=== PATIENT | female | born 1980 | race Caucasian/White ===

== ENCOUNTER → 2016-12-19 | Outpatient (CLI) | payer BC ==
[~2016-12-19] MED LIST: ALBUAER19 INH; CETI10TA10 PO; IPRA1AER2 INH; IPRASOL4 INH; [UNRECOGNIZED DRUG - CODE] PO
== END | disposition home or self-care (01) ==
LOC: C.PAPS 14:15
PROVIDERS: ATTEND Physician Assistant
DX: Z01.419 Encounter for gynecological examination (general) (routine) without abnormal findings (principal)

== ENCOUNTER 2022-09-12 21:35 | Observation (INO) ==
[2022-09-12] MEDS ORDERED: ONDANSETRON INJ 2 MG/ML 2 ML VIAL ONE (21:46)
[2022-09-12] MEDS ORDERED: ONDANSETRON INJ 2 MG/ML 2 ML VIAL IV STA (21:46)
[2022-09-12] MEDS ORDERED: SODIUM CHLORIDE 0.9% 500 ML IV STA (21:48)
[2022-09-12 22:08] LABS: Basophils # (auto) 0.05 K/uL (0-0.2); Basophils % (auto) 0.3 %; Eosinophils # (auto) 0.16 K/uL (0-0.50); Eosinophils % (auto) 0.8 %; Hematocrit (blood only) 42.2 % (37.0-47.0); Hemoglobin 14.7 g/dl (12.0-16.0); Immature Granulocytes % (auto) 0.5 %; Lymphocytes # (auto) 2.92 K/uL (1.2-3.4); Lymphocytes % (auto) 14.7 %; Mean Corpuscular Hemoglobin 32.4 pg (25.0-34.0); Mean Corpuscular Hgb Conc 34.8 g/dL (32.0-36.0); Mean Platelet Volume 9.6 fL (9.4-12.4); Monocytes # (auto) 1.58 K/uL (0.11-0.59); Monocytes % (auto) 7.9 %; Neutrophils # (auto) 15.11 K/uL (1.40-6.50); Neutrophils % (auto) 75.8 %; Platelet Count 219 K/uL (130-400); RDW Coefficient of Variation 12.4 % (11.5-14.5); RDW Standard Deviation 42.5 fL (36.4-46.3); Red Blood Count 4.54 M/uL (4.20-5.40); White Blood Count 19.92 K/ul (4.8-10.8)
[2022-09-12 22:24] LABS: Albumin Globulin Ratio 1.4 (0.9-2); Albumin Level 3.9 gm/dl (3.4-5.0); BUN Creatinine Ratio 13.3 (10-20); Bilirubin,Total 0.5 mg/dl (0.2-1.0); Calcium 9.3 mg/dl (8.6-10.3); Est GFR (African American) 90.1 ml/min; Est GFR (Non-African American) 77.8 ml/min; Globulin 2.8 gm/dl (2.5-4.0); Potassium 3.9 mmol/L (3.5-5.1); Total Protein 6.7 gm/dl (6.0-8.3)
[2022-09-12 22:30] LABS: Troponin I High Sensitivity 5.1 pg/ml (0-14)
[2022-09-12 22:43] LABS: Partial Thromboplastin Time 27.1 Seconds (21.0-31.0); Prothrombin Time 11.3 Seconds (9.0-12.0)
[2022-09-12 22:53] LABS: Adenovirus PCR Not Detected (NotDetected); Bordetella parapertussis PCR Not Detected (NotDetected); Bordetella pertussis PCR Not Detected (NotDetected); Chlamydia pneumoniae PCR Not Detected (NotDetected); Coronavirus 229E PCR Not Detected (NotDetected); Coronavirus CoV-2 (COVID19)PCR Not Detected (NotDetected); Coronavirus HKU1 PCR Not Detected (NotDetected); Coronavirus NL63 PCR Not Detected (NotDetected); Coronavirus OC43PCR Not Detected (NotDetected); Human Metapneumovirus PCR Not Detected (NotDetected); Influenza A PCR Not Detected (NotDetected); Influenza B PCR Not Detected (NotDetected); Mycoplasma pneumoniae PCR Not Detected (NotDetected); Parainfluenza Virus 1 PCR Not Detected (NotDetected); Parainfluenza Virus 2 PCR Not Detected (NotDetected); Parainfluenza Virus 3 PCR Not Detected (NotDetected); Parainfluenza Virus 4 PCR Not Detected (NotDetected); Respiratory Syncytial VirusPCR Not Detected (NotDetected)
[2022-09-12 22:56] LABS: Rhinovirus/Enterovirus PCR DETECTED (NotDetected)
[2022-09-12] MEDS ORDERED: ALBUT/IPRATROP 3MG/0.5MG NEB 3 ML VIAL NEB STA (22:57)
[2022-09-12] MEDS ORDERED: SODIUM CHLORIDE 0.9% 1000ML 1,000 ML IV ONE (22:57)
--- NOTE | 2022-09-12 23:03 | Emergency Department Note ---
History of Present Illness General Chief complaint: Shortness of Breath/Dyspnea Stated complaint: HARD TIME BREATHING,COLD,CONGESTED, Time Seen by Provider: 09/12/22 22:49 History of Present Illness Maximum Pain Intensity: 6 42-year-old female presents emergency department she has a history of hyper eosinophilic syndrome, states that she is on Humira for rheumatoid arthritis and she is also on a tapering dose of steroids and she is now on 10 mg daily. Patient states past 5 days she has had cough cold congestion and states that she felt like she had a cold. Patient states today she spiked a fever. Patient was concerned as she was having some difficulty breathing. Patient denies any hemoptysis denies any green or yellow mucus. Patient denies calf pain. Patient denies pleuritic chest pain. Patient denies nausea vomiting diarrhea. There are no other mitigating or alleviating factors Home Medications Medication Instructions Recorded Confirmed Type cetirizine 10 mg tablet 10 mg PO HS 01/22/19 08/24/22 History ipratropium 0.5 mg-albuterol 3 mg 3 ml inhalation Q6H PRN sob #2 mL 01/22/19 08/24/22 History (2.5 mg base)/3 mL nebulization soln levothyroxine 50 mcg tablet 50 mcg PO QAM 02/13/19 08/24/22 History multivitamin 1 tab PO QPM 05/23/19 08/24/22 History aspirin 325 mg tablet,delayed 325 mg PO BID 06/23/20 08/24/22 History release methotrexate (PF) subcut 12/30/21 08/24/22 History prednisone PO 12/30/21 08/24/22 History desogestrel-e.estradiol 0.15 1 tab PO QPM #84 tabs 04/05/22 08/24/22 Rx mg-0.02 mg(21)/e.estrad 0.01 mg(5) tablet adalimumab 40 mg/0.8 mL 40 mg subcut Q14D 05/01/22 08/24/22 History subcutaneous pen kit (Humira Pen) mometasone-formoterol HFA 200 2 puff inhalation BID #1 inhaler 07/17/22 08/24/22 Rx mcg-5 mcg/actuation aerosol inhaler (Dulera) mepolizumab 100 mg/mL subcutaneous 300 mg (3 mL) subcut .COMPLEX #3 mL 08/23/22 08/24/22 Rx syringe (Nucala) albuterol sulfate 90 mcg/actuation 2 puff inhalation Q4H PRN 09/01/22 Rx aerosol inhaler (ProAir HFA) shortness of breath or wheezing #1 inhaler prednisone 10 mg tablet See Rx Instructions PO DAILY #30 09/01/22 Rx tabs Allergies Allergy/AdvReac Type Severity Reaction Status Date / Time Sulfa (Sulfonamide Allergy Intermediate Rash Verified 08/24/22 11:08 Antibiotics) Penicillins Allergy Unknown Unknown Verified 08/24/22 11:08 Past Med/Surg History Medical History (Updated 09/13/22 @ 01:29 by Jg Alvarado MD) Asthma rare use of PRN inh Hypothyroidism Migraine hx Severe persistent asthma Surgical History H/O wisdom tooth extraction History of esophagogastroduodenoscopy (EGD) History of nasal septoplasty with bilateral turbinate outfracture and turbinoplasty 06/11/19-Dr. Herrera History of sinus surgery 06/11/19-Dr. Herrera Family History Father Seasonal allergies FHx: skin cancer Mother Infestation with Ancylostoma ceylanicum Sinusitis PONV (postoperative nausea and vomiting) Grandmother (Maternal) FHx: lung cancer Grandmother (Paternal) FHx: breast cancer Breast cancer Sister Seizures Grandfather (Maternal) Myocardial infarction Other Heart disease No family history of bleeding disorder Denies family history of Ovarian cancer Prostate cancer Colorectal cancer Social History Smoking Status: Never smoker Second Hand Exposure: No; Do You Dip or Chew Tobacco: No; Hx Alcohol Use: Yes Alcohol type: beer, wine and hard liquor Alcohol type Comment: 3-6 Hx Substance Use: No Preferred Language: Namibian Communication Ability: Effective Citrus Peeler Required: No Beliefs That Will Affect Care: None Current Living Situation: Family and Significant Other current occupational status: employed current occupation: Professor Feels Safe at Home: Yes Assistive Devices: None Review of Systems A total of 10 systems reviewed and were otherwise negative Constitutional: + fever and + body aches Respiratory: + cough and + dyspnea Physical Exam Vital Signs Vital Signs - 24 hr 09/12/22 21:39 09/13/22 00:16 09/13/22 00:10 Temperature 37.4 C 37.9 C H Temperature Source Oral Oral Pulse Rate 125 H 108 H Pulse Rate [Finger] 108 H Pulse Rate from SpO2 Sensor 108 H Pulse Rhythm Regular Pulse Strength Normal Respiratory Rate 26 H 24 24 Respiratory Effort / Characteristics Spontaneous Labored Non-Labored Respiratory Depth Normal Normal Respiratory Pattern Regular Regular Blood Pressure Blood Pressure [Right Arm] 106/64 Blood Pressure Mean Blood Pressure Mean [Right Arm] 78 Blood Pressure Position Sitting Pulse Oximetry 97 96 91 Oxygen Delivery Method Room Air Room Air Sepsis Recent Fever Within 48 Hours Yes Sepsis New/Unexplained Change in Mental Status N/A Sepsis Action Taken by Nursing No Action Required 09/13/22 00:30 09/13/22 01:00 Temperature Temperature Source Pulse Rate 109 H 108 H Pulse Rate [Finger] Pulse Rate from SpO2 Sensor 108 H 108 H Pulse Rhythm Pulse Strength Respiratory Rate 12 26 H Respiratory Effort / Characteristics Respiratory Depth Respiratory Pattern Blood Pressure 97/60 L 90/66 L Blood Pressure [Right Arm] Blood Pressure Mean 72 74 Blood Pressure Mean [Right Arm] Blood Pressure Position Pulse Oximetry 94 96 Oxygen Delivery Method Sepsis Recent Fever Within 48 Hours Sepsis New/Unexplained Change in Mental Status Sepsis Action Taken by Nursing GENERAL: Patient is awake alert in no acute distress patient is resting comfortably and showing no signs of anxiety EYES: The conjunctivae are clear. The pupils are round and reactive. EARS, NOSE, MOUTH AND THROAT: The nose is without any evidence of any deformity. Mucous membranes are moist. Tongue is midline. NECK: The neck is nontender and supple. RESPIRATORY: Normal respiratory effort is noted there is no evidence of wheezing rhonchi or rales CARDIOVASCULAR: Tachycardic, regular noted there no murmurs rubs or gallops normal S1 normal S2. GASTROINTESTINAL: The abdomen is soft. Abdomen is nontender. BACK: No midline tenderness or or step-off noted range of motion in flexion extension as well as rotation no signs of muscle spasm noted MUSCULOSKELETAL/EXTREMITIES: There is no evidence of gross deformity full range of motion is noted in the hips and shoulders. Calves are nontender SKIN: There is no obvious evidence of any rash. There are no petechiae, pallor or cyanosis noted. NEUROLOGIC: Patient is awake alert and oriented x3 strength is symmetric Course Reevaluation(s) Reevaluation #1: Patient was started on IV fluids, patient was also started on antibiotics. The case was discussed with the [facility] hospitalist for admission Time: 02:00 Consultations Consultation #1: Case was discussed with the [facility]ist for admission Time: 02:00 Administered Medications Lactated Ringer's (Lr) 1,000 mls @ 125 mls/hr IV .Q8H CHRIS Stop: 09/13/22 09:44 Last Admin: 09/13/22 02:00 Dose: 125 mls/hr Documented By: NE Discontinued Medications Acetaminophen (Acetaminophen 500 Mg Tab) 1,000 mg PO NOW STA Stop: 09/13/22 00:11 Last Admin: 09/13/22 00:17 Dose: 1,000 mg Documented By: NE Albuterol (Albut/Ipratrop 3mg/0.5mg Neb 3 Ml Vial) 3 ml NEB NOW STA; Protocol Stop: 09/12/22 22:58 Last Admin: 09/13/22 00:17 Dose: 3 ml Documented By: NE Sodium Chloride (Nss) 500 mls @ 999 mls/hr IV .Q31M STA Stop: 09/12/22 22:18 Last Infusion: 09/12/22 22:39 Dose: 0 mls/hr Documented By: Admin: 09/12/22 21:51 Dose: 999 mls/hr Documented By: Sodium Chloride (Nss 1000ml) 1,000 mls @ 999 mls/hr IV .Q1H1M ONE Stop: 09/12/22 23:57 Last Admin: 09/13/22 00:17 Dose: 999 mls/hr Documented By: NE Cefepime HCl (Maxipime) 2,000 mg in 20 mls @ 5 mls/min IV NOW STA; Protocol Stop: 09/13/22 00:22 Last Admin: 09/13/22 01:11 Dose: 5 mls/min Documented By: NE Azithromycin 500 mg/ Dextrose 255 mls @ 125 mls/hr IV ONE ONE Stop: 09/13/22 02:21 Last Admin: 09/13/22 01:11 Dose: 125 mls/hr Documented By: NE Ioversol (Optiray 320 500ml) 125 ml IV ONCE ONE Stop: 09/12/22 23:53 Last Admin: 09/12/22 23:53 Dose: 95 ml Documented By: WON Ondansetron HCl (Ondansetron Inj 2 Mg/Ml 2 Ml Vial) 4 mg IV NOW STA Stop: 09/12/22 21:47 Last Admin: 09/12/22 21:51 Dose: 4 mg Documented By: CARRILLO Ondansetron HCl (Ondansetron Inj 2 Mg/Ml 2 Ml Vial) Confirm Administered Dose 4 mg .ROUTE .STK-MED ONE Stop: 09/12/22 21:47 Last Admin: 09/12/22 21:51 Dose: Not Given Documented By: CARRILLO Medical Decision Making Medical Records Attestation: I reviewed the patient's medical records. Home Medications Current Medication List: was personally reviewed by me Laboratory Data Attestation: I reviewed the patient's lab results. Patient has an elevated white blood cell count which may be due to steroids, patient has a positive bio fire for rhinovirus 09/12/22 21:50 09/12/22 21:50 Lab Results 09/12/22 09/12/22 09/12/22 Range/Units 21:50 21:50 21:50 WBC 19.92 H (4.8-10.8) K/ul RBC 4.54 (4.20-5.40) M/uL Hgb 14.7 (12.0-16.0) g/dl Hct 42.2 (37.0-47.0) % MCV 93.0 (80.0-100.0) fL MCH 32.4 (25.0-34.0) pg MCHC 34.8 (32.0-36.0) g/dL RDW Std Deviation 42.5 (36.4-46.3) fL RDW Coeff of Gabriel 12.4 (11.5-14.5) % Plt Count 219 (130-400) K/uL MPV 9.6 (9.4-12.4) fL Immature Gran % (Auto) 0.5 % Neut % (Auto) 75.8 % Lymph % (Auto) 14.7 % Independence % (Auto) 7.9 % Eos % (Auto) 0.8 % Baso % (Auto) 0.3 % Neut # (Auto) 15.11 H (1.40-6.50) K/uL Lymph # (Auto) 2.92 (1.2-3.4) K/uL Independence # (Auto) 1.58 H (0.11-0.59) K/uL Eos # (Auto) 0.16 (0-0.50) K/uL Baso # (Auto) 0.05 (0-0.2) K/uL Immature Gran # (Auto) 0.10 (0.01-0.20) K/uL PT 11.3 (9.0-12.0) Seconds INR 1.0 (0.9-1.1) APTT 27.1 (21.0-31.0) Seconds PTT Ratio 1.0 Sodium 135 L (136-145) mmol/L Potassium 3.9 (3.5-5.1) mmol/L Chloride 102 (98-107) mmol/L Carbon Dioxide 23 (21-32) mmol/L Anion Gap 10 (3-11) BUN 12 (6-23) mg/dl Creatinine 0.90 (0.6-1.2) mg/dl Est Cr Clr Drug Dosing 80.0 ml/min Est GFR ( Amer) 90.1 ml/min Est GFR (Non-Af Amer) 77.8 ml/min BUN/Creatinine Ratio 13.3 (10-20) Glucose 103 H (70-99(Fasting)) mg/dl Lactate (0.4-2.0) mmol/L Calcium 9.3 (8.6-10.3) mg/dl Total Bilirubin 0.5 (0.2-1.0) mg/dl AST 19 (13-39) U/L ALT 23 (7-52) U/L Alkaline Phosphatase 42 (34-104) U/L Troponin I High Sens 5.1 (0-14) pg/ml Total Protein 6.7 (6.0-8.3) gm/dl Albumin 3.9 (3.4-5.0) gm/dl Globulin 2.8 (2.5-4.0) gm/dl Albumin/Globulin Ratio 1.4 (0.9-2) Adenovirus (PCR) (NotDetected) B. pertussis DNA (PCR) (NotDetected) B.parapertussis DNA PCR (NotDetected) C. pneumoniae DNA (PCR) (NotDetected) Coronavirus OC43 (PCR) (NotDetected) Coronavirus HKU1 (PCR) (NotDetected) Coronavirus 229E (PCR) (NotDetected) SARS-CoV-2 (PCR) (NotDetected) Coronavirus NL63 (PCR) (NotDetected) Human Metapneumovir PCR (NotDetected) Influenza Type A (PCR) (NotDetected) Influenza Type B (PCR) (NotDetected) M. pneumoniae (PCR) (NotDetected) Parainfluenza 1 (PCR) (NotDetected) Parainfluenza 2 (PCR) (NotDetected) Parainfluenza 3 (PCR) (NotDetected) Parainfluenza 4 (PCR) (NotDetected) RSV (PCR) (NotDetected) Entero/Rhino (PCR) (NotDetected) 09/12/22 09/12/22 Range/Units 21:50 23:25 WBC (4.8-10.8) K/ul RBC (4.20-5.40) M/uL Hgb (12.0-16.0) g/dl Hct (37.0-47.0) % MCV (80.0-100.0) fL MCH (25.0-34.0) pg MCHC (32.0-36.0) g/dL RDW Std Deviation (36.4-46.3) fL RDW Coeff of Gabriel (11.5-14.5) % Plt Count (130-400) K/uL MPV (9.4-12.4) fL Immature Gran % (Auto) % Neut % (Auto) % Lymph % (Auto) % Independence % (Auto) % Eos % (Auto) % Baso % (Auto) % Neut # (Auto) (1.40-6.50) K/uL Lymph # (Auto) (1.2-3.4) K/uL Independence # (Auto) (0.11-0.59) K/uL Eos # (Auto) (0-0.50) K/uL Baso # (Auto) (0-0.2) K/uL Immature Gran # (Auto) (0.01-0.20) K/uL PT (9.0-12.0) Seconds INR (0.9-1.1) APTT (21.0-31.0) Seconds PTT Ratio Sodium (136-145) mmol/L Potassium (3.5-5.1) mmol/L Chloride (98-107) mmol/L Carbon Dioxide (21-32) mmol/L Anion Gap (3-11) BUN (6-23) mg/dl Creatinine (0.6-1.2) mg/dl Est Cr Clr Drug Dosing ml/min Est GFR ( Amer) ml/min Est GFR (Non-Af Amer) ml/min BUN/Creatinine Ratio (10-20) Glucose (70-99(Fasting)) mg/dl Lactate 1.0 (0.4-2.0) mmol/L Calcium (8.6-10.3) mg/dl Total Bilirubin (0.2-1.0) mg/dl AST (13-39) U/L ALT (7-52) U/L Alkaline Phosphatase (34-104) U/L Troponin I High Sens (0-14) pg/ml Total Protein (6.0-8.3) gm/dl Albumin (3.4-5.0) gm/dl Globulin (2.5-4.0) gm/dl Albumin/Globulin Ratio (0.9-2) Adenovirus (PCR) Not Detected (NotDetected) B. pertussis DNA (PCR) Not Detected (NotDetected) B.parapertussis DNA PCR Not Detected (NotDetected) C. pneumoniae DNA (PCR) Not Detected (NotDetected) Coronavirus OC43 (PCR) Not Detected (NotDetected) Coronavirus HKU1 (PCR) Not Detected (NotDetected) Coronavirus 229E (PCR) Not Detected (NotDetected) SARS-CoV-2 (PCR) Not Detected (NotDetected) Coronavirus NL63 (PCR) Not Detected (NotDetected) Human Metapneumovir PCR Not Detected (NotDetected) Influenza Type A (PCR) Not Detected (NotDetected) Influenza Type B (PCR) Not Detected (NotDetected) M. pneumoniae (PCR) Not Detected (NotDetected) Parainfluenza 1 (PCR) Not Detected (NotDetected) Parainfluenza 2 (PCR) Not Detected (NotDetected) Parainfluenza 3 (PCR) Not Detected (NotDetected) Parainfluenza 4 (PCR) Not Detected (NotDetected) RSV (PCR) Not Detected (NotDetected) Entero/Rhino (PCR) DETECTED A* (NotDetected) Imaging Data Attestation: I personally reviewed and interpreted this imaging study as follows: My Impression: Chest x-ray interpreted by me negative for infiltrate normal mediastinum no obvious effusion CT chest interpreted by me is negative for PE Radiologist's Impression: Chest CTA 09/12/22 22:57 Exam(s): CTA CHEST IV Amt: 95 ML OPTIAY 320 EXAM: CT Angiography Chest With Intravenous Contrast CLINICAL HISTORY: Evaluate for pulmonary embolism. TECHNIQUE: Axial computed tomographic angiography images of the chest with intravenous contrast. Automated exposure control was utilized for the study. A dose lowering technique was utilized adhering to the principles of ALARA. MIP reconstructed images were created and reviewed. COMPARISON: No relevant prior studies available. FINDINGS: Limitations: There is respiratory artifact, which degrades image quality on multiple image slices. Pulmonary arteries: Accounting for limitations with respiratory artifact and suboptimal enhancement pattern of the pulmonary artery tree, there is no definite evidence for pulmonary embolism. Aorta: No acute findings. No thoracic aortic aneurysm. Lungs: Patchy opacities noted in the bilateral lower lobe centrally and questionably in the inferior right middle lobe. Pleural space: Unremarkable. No significant effusion. No pneumothorax. Heart: Unremarkable. No cardiomegaly. No significant pericardial effusion. Bones/joints: No acute fracture. No dislocation. Soft tissues: Unremarkable. Lymph nodes: Unremarkable. No enlarged lymph nodes. IMPRESSION: 1. Accounting for limitations with respiratory artifact and suboptimal enhancement pattern of the pulmonary artery tree, there is no definite evidence for pulmonary embolism. 2. Patchy opacities noted in the bilateral lower lobe centrally and questionably in the inferior right middle lobe. Findings are most consistent with multifocal pneumonia. Electronically signed by: Qasim Walsh MD 09/13/22 00:16 AM ECG Data Attestation: I personally reviewed and interpreted this ECG as follows: Additional Comments: EKG interpreted by me sinus tachycardia rate of 111, normal intervals normal axis, no obvious ST segment elevation or depression Telemetry was ordered by me, interpreted as sinus tachycardia rate of 111 MDM Narrative Medical decision making differential diagnosis includes bronchitis, upper respiratory tract infection, pneumonia, anemia, sepsis, pulmonary embolism Plan is to check labs, EKG, chest x-ray, CT, bio fire Patient was given IV fluids Patient's pulse ox is 97% interpreted by me as nonhypoxic Patient will be admitted for multifocal pneumonia Impression & Plan Pneumonia, Enterovirus infection Discharge Plan Visit Data Chief Complaint: Shortness of Breath/Dyspnea Stated Complaint: HARD TIME BREATHING,COLD,CONGESTED, ED Provider: Bob Butler Discharge Problem: Pneumonia, Enterovirus infection Patient Disposition: Admitted As Inpatient Discharge Instructions Interventions: ED Discharge Assessment Last Done: 09/13/22 01:40
[2022-09-12] MEDS ORDERED: OPTIRAY 320 500ml IV ONE (23:52)
[2022-09-13] MEDS ORDERED: ACETAMINOPHEN 500 MG TAB PO STA (00:10)
--- NOTE | 2022-09-13 00:16 | CT Scan Report ---
Exam(s): CTA CHEST IV Amt: 95 ML OPTIAY 320 EXAM: CT Angiography Chest With Intravenous Contrast CLINICAL HISTORY: Evaluate for pulmonary embolism. TECHNIQUE: Axial computed tomographic angiography images of the chest with intravenous contrast. Automated exposure control was utilized for the study. A dose lowering technique was utilized adhering to the principles of ALARA. MIP reconstructed images were created and reviewed. COMPARISON: No relevant prior studies available. FINDINGS: Limitations: There is respiratory artifact, which degrades image quality on multiple image slices. Pulmonary arteries: Accounting for limitations with respiratory artifact and suboptimal enhancement pattern of the pulmonary artery tree, there is no definite evidence for pulmonary embolism. Aorta: No acute findings. No thoracic aortic aneurysm. Lungs: Patchy opacities noted in the bilateral lower lobe centrally and questionably in the inferior right middle lobe. Pleural space: Unremarkable. No significant effusion. No pneumothorax. Heart: Unremarkable. No cardiomegaly. No significant pericardial effusion. Bones/joints: No acute fracture. No dislocation. Soft tissues: Unremarkable. Lymph nodes: Unremarkable. No enlarged lymph nodes. IMPRESSION: 1. Accounting for limitations with respiratory artifact and suboptimal enhancement pattern of the pulmonary artery tree, there is no definite evidence for pulmonary embolism. 2. Patchy opacities noted in the bilateral lower lobe centrally and questionably in the inferior right middle lobe. Findings are most consistent with multifocal pneumonia. Electronically signed by: Qasim Walsh MD 09/13/22 00:16 AM
[2022-09-13] MEDS ORDERED: CEFEPIME 2,000 MG/20 ML VIAL IV STA (00:19)
[2022-09-13] MEDS ORDERED: AZITHROMYCIN 500 MG in DEXTROSE 5% 250 ML IV ONE (00:19)
--- NOTE | 2022-09-13 01:20 | History & Physical Report ---
Date of Service September 13, 2022 Assessment & Plan (1) Pneumonia: Plan: -Imaging findings consistent with multifocal pneumonia, noted rhino/enterovirus positive on RVP, associated WBC 19 -Likely viral pneumonia with potential superimposed bacterial pneumonia -Cefepime and azithromycin given in ER -Will continue azithromycin -Cefepime switched to ceftriaxone -Supportive care- duonebs PRN, incentive spirometry -Procalcitonin pending -BCx pending -Trend CBC -Pt currently w/ stable respiratory status on RA (2) Enterovirus infection: Plan: -Supportive care as above (3) Asthma: Plan: -May feature element of asthma exacerbation triggered by pneumonia -Pt has been completing steroid taper of prednisone leading up to admission for rheumatoid arthritis flare -Will defer on additional corticosteroids for now -Duonebs q4h, incentive spirometry -Continue daily inhalers- Dulera, albuterol PRN (4) Hyponatremia: Plan: -Na 135, mild, likely due to reduced oral intake -Fluid repletion ongoing -Monitor BMP (5) Allergic rhinitis: Plan: -Continue cetirizine (6) Hypothyroidism: Plan: -Continue levothyroxine (7) Rheumatoid arthritis: Plan: -Currently not in acute flare -Stable, on Humira as outpatient Plan FENGI: Regular Code status: Full DVT ppx: Lovenox Isolation: Contact Dispo: Medical with telemetry History of Present Illness Chief Complaint: Dyspnea Primary Care Provider: MICHAEL Alex 42 yo F with PMH asthma, allergic rhinitis, chronic sinusitis, RA on Humira, hypereosinophilic syndrome on Nucala, hypothyroidism presenting with dyspnea. Pt reports onset of URI symptoms 5 days prior including productive cough, congestion and chills along with increasing dyspnea. She did have a fever earlier today. Denies any chest pain, N/V/D. Has been taking albuterol inhaler more as a result which did provide some relief. Pt arrived to ER hemodynamically stable, T 37.9 C. Initial labs significant for WBC 19, Na 135, biofire positive for rhino/enterovirus. CXR and CT chest with findings of multifocal pneumonia b/l and RML. ER interventions include Tylenol, albuterol, 1.5L NSS bolus, Zofran, azithromycin, cefepime. At present, patient does feel better after albuterol treatment. She reports continued fever, chills, dyspnea but overall mild improvement. Allergies Allergy/AdvReac Type Severity Reaction Status Date / Time Sulfa (Sulfonamide Allergy Intermediate Rash Verified 08/24/22 11:08 Antibiotics) Penicillins Allergy Unknown Unknown Verified 08/24/22 11:08 Home Medications Medication Instructions Recorded Confirmed Type cetirizine 10 mg tablet 10 mg PO HS 01/22/19 08/24/22 History ipratropium 0.5 mg-albuterol 3 mg 3 ml inhalation Q6H PRN sob #2 mL 01/22/19 08/24/22 History (2.5 mg base)/3 mL nebulization soln levothyroxine 50 mcg tablet 50 mcg PO QAM 02/13/19 08/24/22 History multivitamin 1 tab PO QPM 05/23/19 08/24/22 History aspirin 325 mg tablet,delayed 325 mg PO BID 06/23/20 08/24/22 History release methotrexate (PF) subcut 12/30/21 08/24/22 History prednisone PO 12/30/21 08/24/22 History desogestrel-e.estradiol 0.15 1 tab PO QPM #84 tabs 04/05/22 08/24/22 Rx mg-0.02 mg(21)/e.estrad 0.01 mg(5) tablet adalimumab 40 mg/0.8 mL 40 mg subcut Q14D 05/01/22 08/24/22 History subcutaneous pen kit (Humira Pen) mometasone-formoterol HFA 200 2 puff inhalation BID #1 inhaler 07/17/22 08/24/22 Rx mcg-5 mcg/actuation aerosol inhaler (Dulera) mepolizumab 100 mg/mL subcutaneous 300 mg (3 mL) subcut .COMPLEX #3 mL 08/23/22 08/24/22 Rx syringe (Nucala) albuterol sulfate 90 mcg/actuation 2 puff inhalation Q4H PRN 09/01/22 Rx aerosol inhaler (ProAir HFA) shortness of breath or wheezing #1 inhaler prednisone 10 mg tablet See Rx Instructions PO DAILY #30 09/01/22 Rx tabs azithromycin 250 mg tablet 250 mg PO DAILY 4 days #4 tabs 09/13/22 Rx prednisone 10 mg tablet 10 mg PO DAILY 4 days #4 tabs 09/13/22 Rx Past Med/Surg History Medical History (Updated 09/13/22 @ 10:33 by Tejinder Alfaro DO) Asthma rare use of PRN inh Hypothyroidism Migraine hx Severe persistent asthma Surgical History H/O wisdom tooth extraction History of esophagogastroduodenoscopy (EGD) History of nasal septoplasty with bilateral turbinate outfracture and turbinoplasty 06/11/19-Dr. Herrera History of sinus surgery 06/11/19-Dr. Herrera Family History Father Seasonal allergies FHx: skin cancer Mother Infestation with Ancylostoma ceylanicum Sinusitis PONV (postoperative nausea and vomiting) Grandmother (Maternal) FHx: lung cancer Grandmother (Paternal) FHx: breast cancer Breast cancer Sister Seizures Grandfather (Maternal) Myocardial infarction Other Heart disease No family history of bleeding disorder Denies family history of Ovarian cancer Prostate cancer Colorectal cancer Social History Smoking Status: Never smoker Second Hand Exposure: No; Do You Dip or Chew Tobacco: No; Tobacco Cessation Education Requested by Patient: No Hx Alcohol Use: Yes Alcohol type: wine Alcohol type Comment: 3-6 Hx Substance Use: No Preferred Language: Yakut Communication Ability: Effective Building Construction Inspector Required: No Beliefs That Will Affect Care: None Current Living Situation: Significant Other current occupational status: employed current occupation: Professor Other Information That Helps Us Care for You: No Feels Safe at Home: Yes Safety Concerns: Feels Safe At This Time Assistive Devices: None Review of Systems Review of Systems: Per HPI/Subjective Physical Exam Physical Exam: General: ill-appearing, no acute distress HEENT: PERRL, EOMI, conjunctivae clear without injection, anicteric sclerae, moist mucous membranes, clear oropharynx without exudate or erythema Neck: supple, trachea midline, no thyromegaly, no JVD, no cervical lymphadenopathy CV: RRR, normal S1 and S2, no murmurs Resp: Mild expiratory wheeze, rales of b/l middle lobes greater on R than L, diminished air flow entry, no increased work of breathing Abd: Soft, nontender, nondistended, no guarding or rebound, no hepat osplenomegaly MSK: Normal bulk of all four extremities Neuro: AOx3, no focal motor or sensory deficits Skin: no rashes or lesions, warm and dry Ext: no LE peripheral edema or erythema, capillary refill <2s in all four extremities, 2+ LE peripheral pulses b/l Results & Data Results & Data Vital Signs (Past 12 Hours) Vital Signs Temp Pulse Pulse Resp BP BP Pulse Ox 09/13/22 01:00 108 H 26 H 90/66 L 96 09/13/22 00:30 109 H 12 97/60 L 94 09/13/22 00:10 108 H 24 91 09/13/22 00:16 37.9 C H 108 H 24 106/64 96 09/12/22 21:39 37.4 C 125 H 26 H 97 O2 Del Method 09/13/22 01:00 09/13/22 00:30 09/13/22 00:10 09/13/22 00:16 Room Air 09/12/22 21:39 Room Air Code Status & VTE Plan VTE Prophylaxis Plan VTE Prophylaxis will be ordered: Yes Supervising Physician Co-Signing Physician Notes Attending addendum: I have physically seen this patient, have supervised the medical residents activities, and agree with the H&P unless as otherwise noted. Assessment and Plan: Pneumonia/asthma- Multifocal pneumonia as noted on CT Positive for rhinovirus/enterovirus Viral pneumonia with secondary bacterial pneumonia Ceftriaxone 1 g IV daily Azithromycin 500mg IV daily Duonebs every 4 hours while awake and every 2 hours when necessary. Continue Dulera Allergic rhinitis- Continue cetirizine Rheumatoid arthritis- Monitor for flares Continues Humira as outpatient Remaining orders and notations as noted Resident Activity Tracking Resident Involvement: Resident Care Provided Care Provided: Adult Hospital Medicine
[2022-09-13] MEDS ORDERED: ALBUTEROL HFA 8 GM INHALER INH PRN (01:41)
[2022-09-13] MEDS ORDERED: ACETAMINOPHEN 325 MG TAB PO PRN (01:41)
[2022-09-13] MEDS ORDERED: ONDANSETRON INJ 2 MG/ML 2 ML VIAL IV PRN (01:41)
[2022-09-13] MEDS ORDERED: LACTATED RINGER'S 1,000 ML IV SCH (01:45)
[2022-09-13] MEDS: ALBUT/IPRATROP 3MG/0.5MG NEB 3 ML VIAL NEB SCH ×4 (03:35→15:33)
[2022-09-13 03:51] LABS: Hematocrit (blood only) 35.2 % (37.0-47.0); Hemoglobin 12.3 g/dl (12.0-16.0); Mean Corpuscular Hemoglobin 32.4 pg (25.0-34.0); Mean Corpuscular Hgb Conc 34.9 g/dL (32.0-36.0); Mean Corpuscular Volume 92.6 fL (80.0-100.0); Mean Platelet Volume 9.9 fL (9.4-12.4); Platelet Count 163 K/uL (130-400); RDW Coefficient of Variation 12.4 % (11.5-14.5); RDW Standard Deviation 42.3 fL (36.4-46.3); White Blood Count 15.55 K/ul (4.8-10.8)
[2022-09-13 04:06] LABS: BUN Creatinine Ratio 12.7 (10-20); Calcium 7.9 mg/dl (8.6-10.3); Creatinine Clr Calc Pharmacy 91.1 ml/min; Est GFR (African American) 105.5 ml/min; Potassium 3.8 mmol/L (3.5-5.1)
[2022-09-13] MEDS ORDERED: cefTRIAXone SODIUM 1,000 MG in DEXTROSE 5% 50 ML IV SCH ×2 (06:00→08:00)
[2022-09-13] MEDS ORDERED: LEVOTHYROXINE SODIUM 50 MCG TABLET PO SCH (06:30)
--- NOTE | 2022-09-13 06:58 | XRay Report ---
XR chest 1V not portable HISTORY: Chest pain, nonspecific COMPARISON: Chest CT 09/12/2022. FINDINGS: No pneumothorax. No pleural effusions. The cardiac silhouette is normal in size. No evidenc e for pulmonary edema. Faint patchy density at the left lung base are better appreciated on the same day chest CT. No acute fractures. IMPRESSION: Faint patchy density at the left lung base are better appreciated on the same day chest CT. ACT 112: Negative or not required by law. Electronically signed by: Tomas Andrade M.D. 09/13/2022 6:57 AM
[2022-09-13] MEDS ORDERED: LACTATED RINGER'S 1,000 ML IV ONE (08:23)
[2022-09-13] MEDS ORDERED: FLUTICASONE/VILANTEROL 200/25MCG 14 PUFFS/INHALER INH SCH (09:00)
[2022-09-13] MEDS ORDERED: ENOXAPARIN INJ 40 MG/0.4 ML SYR SQ SCH (09:00)
[2022-09-13] MEDS ORDERED: ASPIRIN 325 MG ECTAB PO SCH (09:00)
[2022-09-13] MEDS ORDERED: predniSONE 10 MG TABLET PO STA (09:46)
[2022-09-13] MEDS ORDERED: ONDANSETRON 4 MG OD TAB PO PRN (09:47)
--- NOTE | 2022-09-13 10:30 | Hospitalist Progress Note ---
Date of Service September 13, 2022 Assessment & Plan (1) Pneumonia: Plan: 42 yo F with PMH asthma, allergic rhinitis, chronic sinusitis, RA on Humira, hypereosinophilic syndrome on Nucala, hypothyroidism presenting with dyspnea. #Community acquired pneumonia #Rhino/enterovirus -Imaging findings consistent with multifocal pneumonia, +rhino/enterovirus positive on RVP, WBC 19 -Likely viral pneumonia with potential superimposed atypical bacterial pneumonia -Procalcitonin neg -BCx pending -Cefepime and azithromycin given in ER. Only cont. zithromax to cover for atypical pneumonia. -Supportive care- duonebs CHRIS, incentive spirometry #Asthma, acute on chronic in exacerbation #Hypereosinophilic Syndrome -likely in exacerbation 2/2 infection and hypereosinophilic syndrome. Pt states since last month has been on two prednisone tapers while she waits for outpatient biologic therapy. Most recently was to complete a 10 day prednisone taper 09/13/22.. -Brio daily, Duonebs q4h, incentive spirometry -given 10mg prednisone today to complete taper, does have very mild wheezing on exam #Allergic rhinitis -cont. certirizine #Hypothyroidism -cont. levothyroxine #Rheumatoid arthritis, stable -currently not in acute flare -on Humira as outpatient FEN/GI: regular Code status: Full DVT ppx: lovenox Dispo: med tele (2) Enterovirus infection: (3) Asthma: (4) Allergic rhinitis: (5) Hypothyroidism: (6) Rheumatoid arthritis: (7) Hypereosinophilic syndrome: Admission and Anticipated Discharge Date Admission Date: September 13, 2022 Subjective Patient seen at bedside this morning. Feels alot better than on admisson. Some chest tightness for last few days 2/2 cough. Denies sob, headache, abd pain, N/V/D, constipation, dysuria. Review of Systems Review of Systems: All systems reviewed & are unremarkable except as noted in HPI & below Physical Exam Physical Exam: General:in no acute distress HEENT: anicteric sclerae, moist mucous membranes Neck: supple, trachea midline CV: RRR, normal S1 and S2, no murmurs Resp: Mild diffuse expiratory wheeze, no rales or rhonchi, good air flow entry, no increased work of breathing Abd: Soft, nontender, nondistended, no guarding or rebound, no hepatosplenomegaly Neuro: AOx3, no focal deficits Skin: no rashes or lesions, warm and dry Results & Data Results & Data Vital Signs (Past 12 Hours) Vital Signs Temp Pulse Pulse Resp BP BP BP 09/13/22 09:55 36.5 C 82 18 99/71 L 09/13/22 08:20 36.5 C 85 82/53 L 09/13/22 07:11 73 15 09/13/22 05:10 09/13/22 05:10 09/13/22 05:10 36.3 C L 80 16 104/66 09/13/22 01:15 37.6 C H 09/13/22 04:30 84 22 09/13/22 04:00 84 23 99/61 L 09/13/22 03:41 90 9 L 09/13/22 03:30 87 22 09/13/22 03:00 88 23 09/13/22 02:30 91 H 21 09/13/22 02:00 97 H 23 09/13/22 02:00 108/63 09/13/22 01:30 105 H 17 100/65 09/13/22 01:00 108 H 26 H 90/66 L 09/13/22 00:30 109 H 12 97/60 L 09/13/22 00:10 108 H 24 09/13/22 00:16 37.9 C H 108 H 24 106/64 Pulse Ox O2 Del Method O2 Flow Rate 09/13/22 09:55 94 Room Air 09/13/22 08:20 93 Room Air 09/13/22 07:11 97 Nasal Cannula 2 09/13/22 05:10 Nasal Cannula 2 09/13/22 05:10 Nasal Cannula 2 09/13/22 05:10 100 Nasal Cannula 2 09/13/22 01:15 09/13/22 04:30 95 09/13/22 04:00 95 09/13/22 03:41 94 09/13/22 03:30 98 09/13/22 03:00 97 Nasal Cannula 2 09/13/22 02:30 97 09/13/22 02:00 96 09/13/22 02:00 09/13/22 01:30 91 09/13/22 01:00 96 09/13/22 00:30 94 09/13/22 00:10 91 09/13/22 00:16 96 Room Air Laboratory Results 09/13/22 09/13/22 09/13/22 Range/Units 03:34 03:34 03:34 WBC (4.8-10.8) K/ul RBC (4.20-5.40) M/uL Hgb (12.0-16.0) g/dl Hct (37.0-47.0) % MCV (80.0-100.0) fL MCH (25.0-34.0) pg MCHC (32.0-36.0) g/dL RDW Std Deviation (36.4-46.3) fL RDW Coeff of Gabriel (11.5-14.5) % Plt Count (130-400) K/uL MPV (9.4-12.4) fL Immature Gran % (Auto) % Neut % (Auto) % Lymph % (Auto) % [place] % (Auto) % Eos % (Auto) % Baso % (Auto) % Neut # (Auto) (1.40-6.50) K/uL Lymph # (Auto) (1.2-3.4) K/uL [place] # (Auto) (0.11-0.59) K/uL Eos # (Auto) (0-0.50) K/uL Baso # (Auto) (0-0.2) K/uL Immature Gran # (Auto) (0.01-0.20) K/uL PT (9.0-12.0) Seconds INR (0.9-1.1) APTT (21.0-31.0) Seconds PTT Ratio Sodium 138 (136-145) mmol/L Potassium 3.8 (3.5-5.1) mmol/L Chloride 110 H (98-107) mmol/L Carbon Dioxide 21 (21-32) mmol/L Anion Gap 7 (3-11) BUN 10 (6-23) mg/dl Creatinine 0.79 (0.6-1.2) mg/dl Est Cr Clr Drug Dosing 91.1 ml/min Est GFR ( Amer) 105.5 ml/min Est GFR (Non-Af Amer) 91.0 ml/min BUN/Creatinine Ratio 12.7 (10-20) Glucose 115 H (70-99(Fasting)) mg/dl Lactate (0.4-2.0) mmol/L Calcium 7.9 L (8.6-10.3) mg/dl Total Bilirubin (0.2-1.0) mg/dl AST (13-39) U/L ALT (7-52) U/L Alkaline Phosphatase (34-104) U/L Troponin I High Sens (0-14) pg/ml Total Protein (6.0-8.3) gm/dl Albumin (3.4-5.0) gm/dl Globulin (2.5-4.0) gm/dl Albumin/Globulin Ratio (0.9-2) Procalcitonin 0.05 (0-0.5) ng/ml Nasal Screen MRSA (PCR) Positive A (Negative) Adenovirus (PCR) (NotDetected) B. pertussis DNA (PCR) (NotDetected) B.parapertussis DNA PCR (NotDetected) C. pneumoniae DNA (PCR) (NotDetected) Coronavirus OC43 (PCR) (NotDetected) Coronavirus HKU1 (PCR) (NotDetected) Coronavirus 229E (PCR) (NotDetected) SARS-CoV-2 (PCR) (NotDetected) Coronavirus NL63 (PCR) (NotDetected) Human Metapneumovir PCR (NotDetected) Influenza Type A (PCR) (NotDetected) Influenza Type B (PCR) (NotDetected) M. pneumoniae (PCR) (NotDetected) Parainfluenza 1 (PCR) (NotDetected) Parainfluenza 2 (PCR) (NotDetected) Parainfluenza 3 (PCR) (NotDetected) Parainfluenza 4 (PCR) (NotDetected) RSV (PCR) (NotDetected) Entero/Rhino (PCR) (NotDetected) 09/13/22 09/12/22 09/12/22 Range/Units 03:34 23:25 21:50 WBC 15.55 H (4.8-10.8) K/ul RBC 3.80 L (4.20-5.40) M/uL Hgb 12.3 (12.0-16.0) g/dl Hct 35.2 L (37.0-47.0) % MCV 92.6 (80.0-100.0) fL MCH 32.4 (25.0-34.0) pg MCHC 34.9 (32.0-36.0) g/dL RDW Std Deviation 42.3 (36.4-46.3) fL RDW Coeff of Gabriel 12.4 (11.5-14.5) % Plt Count 163 (130-400) K/uL MPV 9.9 (9.4-12.4) fL Immature Gran % (Auto) % Neut % (Auto) % Lymph % (Auto) % [place] % (Auto) % Eos % (Auto) % Baso % (Auto) % Neut # (Auto) (1.40-6.50) K/uL Lymph # (Auto) (1.2-3.4) K/uL [place] # (Auto) (0.11-0.59) K/uL Eos # (Auto) (0-0.50) K/uL Baso # (Auto) (0-0.2) K/uL Immature Gran # (Auto) (0.01-0.20) K/uL PT (9.0-12.0) Seconds INR (0.9-1.1) APTT (21.0-31.0) Seconds PTT Ratio Sodium (136-145) mmol/L Potassium (3.5-5.1) mmol/L Chloride (98-107) mmol/L Carbon Dioxide (21-32) mmol/L Anion Gap (3-11) BUN (6-23) mg/dl Creatinine (0.6-1.2) mg/dl Est Cr Clr Drug Dosing ml/min Est GFR ( Amer) ml/min Est GFR (Non-Af Amer) ml/min BUN/Creatinine Ratio (10-20) Glucose (70-99(Fasting)) mg/dl Lactate 1.0 (0.4-2.0) mmol/L Calcium (8.6-10.3) mg/dl Total Bilirubin (0.2-1.0) mg/dl AST (13-39) U/L ALT (7-52) U/L Alkaline Phosphatase (34-104) U/L Troponin I High Sens (0-14) pg/ml Total Protein (6.0-8.3) gm/dl Albumin (3.4-5.0) gm/dl Globulin (2.5-4.0) gm/dl Albumin/Globulin Ratio (0.9-2) Procalcitonin (0-0.5) ng/ml Nasal Screen MRSA (PCR) (Negative) Adenovirus (PCR) Not Detected (NotDetected) B. pertussis DNA (PCR) Not Detected (NotDetected) B.parapertussis DNA PCR Not Detected (NotDetected) C. pneumoniae DNA (PCR) Not Detected (NotDetected) Coronavirus OC43 (PCR) Not Detected (NotDetected) Coronavirus HKU1 (PCR) Not Detected (NotDetected) Coronavirus 229E (PCR) Not Detected (NotDetected) SARS-CoV-2 (PCR) Not Detected (NotDetected) Coronavirus NL63 (PCR) Not Detected (NotDetected) Human Metapneumovir PCR Not Detected (NotDetected) Influenza Type A (PCR) Not Detected (NotDetected) Influenza Type B (PCR) Not Detected (NotDetected) M. pneumoniae (PCR) Not Detected (NotDetected) Parainfluenza 1 (PCR) Not Detected (NotDetected) Parainfluenza 2 (PCR) Not Detected (NotDetected) Parainfluenza 3 (PCR) Not Detected (NotDetected) Parainfluenza 4 (PCR) Not Detected (NotDetected) RSV (PCR) Not Detected (NotDetected) Entero/Rhino (PCR) DETECTED A* (NotDetected) 09/12/22 09/12/22 09/12/22 Range/Units 21:50 21:50 21:50 WBC 19.92 H (4.8-10.8) K/ul RBC 4.54 (4.20-5.40) M/uL Hgb 14.7 (12.0-16.0) g/dl Hct 42.2 (37.0-47.0) % MCV 93.0 (80.0-100.0) fL MCH 32.4 (25.0-34.0) pg MCHC 34.8 (32.0-36.0) g/dL RDW Std Deviation 42.5 (36.4-46.3) fL RDW Coeff of Gabriel 12.4 (11.5-14.5) % Plt Count 219 (130-400) K/uL MPV 9.6 (9.4-12.4) fL Immature Gran % (Auto) 0.5 % Neut % (Auto) 75.8 % Lymph % (Auto) 14.7 % [place] % (Auto) 7.9 % Eos % (Auto) 0.8 % Baso % (Auto) 0.3 % Neut # (Auto) 15.11 H (1.40-6.50) K/uL Lymph # (Auto) 2.92 (1.2-3.4) K/uL [place] # (Auto) 1.58 H (0.11-0.59) K/uL Eos # (Auto) 0.16 (0-0.50) K/uL Baso # (Auto) 0.05 (0-0.2) K/uL Immature Gran # (Auto) 0.10 (0.01-0.20) K/uL PT 11.3 (9.0-12.0) Seconds INR 1.0 (0.9-1.1) APTT 27.1 (21.0-31.0) Seconds PTT Ratio 1.0 Sodium 135 L (136-145) mmol/L Potassium 3.9 (3.5-5.1) mmol/L Chloride 102 (98-107) mmol/L Carbon Dioxide 23 (21-32) mmol/L Anion Gap 10 (3-11) BUN 12 (6-23) mg/dl Creatinine 0.90 (0.6-1.2) mg/dl Est Cr Clr Drug Dosing 80.0 ml/min Est GFR ( Amer) 90.1 ml/min Est GFR (Non-Af Amer) 77.8 ml/min BUN/Creatinine Ratio 13.3 (10-20) Glucose 103 H (70-99(Fasting)) mg/dl Lactate (0.4-2.0) mmol/L Calcium 9.3 (8.6-10.3) mg/dl Total Bilirubin 0.5 (0.2-1.0) mg/dl AST 19 (13-39) U/L ALT 23 (7-52) U/L Alkaline Phosphatase 42 (34-104) U/L Troponin I High Sens 5.1 (0-14) pg/ml Total Protein 6.7 (6.0-8.3) gm/dl Albumin 3.9 (3.4-5.0) gm/dl Globulin 2.8 (2.5-4.0) gm/dl Albumin/Globulin Ratio 1.4 (0.9-2) Procalcitonin (0-0.5) ng/ml Nasal Screen MRSA (PCR) (Negative) Adenovirus (PCR) (NotDetected) B. pertussis DNA (PCR) (NotDetected) B.parapertussis DNA PCR (NotDetected) C. pneumoniae DNA (PCR) (NotDetected) Coronavirus OC43 (PCR) (NotDetected) Coronavirus HKU1 (PCR) (NotDetected) Coronavirus 229E (PCR) (NotDetected) SARS-CoV-2 (PCR) (NotDetected) Coronavirus NL63 (PCR) (NotDetected) Human Metapneumovir PCR (NotDetected) Influenza Type A (PCR) (NotDetected) Influenza Type B (PCR) (NotDetected) M. pneumoniae (PCR) (NotDetected) Parainfluenza 1 (PCR) (NotDetected) Parainfluenza 2 (PCR) (NotDetected) Parainfluenza 3 (PCR) (NotDetected) Parainfluenza 4 (PCR) (NotDetected) RSV (PCR) (NotDetected) Entero/Rhino (PCR) (NotDetected)
--- NOTE | 2022-09-13 10:52 | Electrocardiogram Report ---
Test Reason : Blood Pressure : / mmHG Vent. Rate : 111 BPM Atrial Rate : 111 BPM P-R Int : 136 ms QRS Dur : 066 ms QT Int : 322 ms P-R-T Axes : 065 077 066 degrees QTc Int : 437 ms Sinus tachycardia Possible Left atrial enlargement Borderline ECG When compared with ECG of 22-NOV-2014 13:02, No significant change was found Confirmed by Joaquin Hernandez ([id number] on 09/13/2022 10:52:00 AM Referred By: REFERRED SELF Confirmed By:Joaquin Hernandez
--- NOTE | 2022-09-13 17:12 | Discharge Summary ---
Date of Service September 13, 2022 Admission HPI Per Admitting Provider 42 yo F with PMH asthma, allergic rhinitis, chronic sinusitis, RA on Humira, hypereosinophilic syndrome on Nucala, hypothyroidism presenting with dyspnea. Pt reports onset of URI symptoms 5 days prior including productive cough, congestion and chills along with increasing dyspnea. She did have a fever earlier today. Denies any chest pain, N/V/D. Has been taking albuterol inhaler more as a result which did provide some relief. Pt arrived to ER hemodynamically stable, T 37.9 C. Initial labs significant for WBC 19, Na 135, biofire positive for rhino/enterovirus. CXR and CT chest with findings of multifocal pneumonia b/l and RML. ER interventions include Tylenol, albuterol, 1.5L NSS bolus, Zofran, azithromycin, cefepime. At present, patient does feel better after albuterol treatment. She reports continued fever, chills, dyspnea but overall mild improvement. Principal Diagnosis pneumonia, rhino/enterovirus, asthma exacerbation Discharge Exam General:in no acute distress HEENT: anicteric sclerae, moist mucous membranes Neck: supple, trachea midline CV: RRR, normal S1 and S2, no murmurs Resp: Mild diffuse expiratory wheeze, no rales or rhonchi, good air flow entry, no increased work of breathing Abd: Soft, nontender, nondistended, no guarding or rebound, no hepatosplenomegaly Neuro: AOx3, no focal deficits Skin: no rashes or lesions, warm and dry Discharge Data Allergies Allergy/AdvReac Type Severity Reaction Status Date / Time Sulfa (Sulfonamide Allergy Intermediate Rash Verified 08/24/22 11:08 Antibiotics) Penicillins Allergy Unknown Unknown Verified 08/24/22 11:08 Consultations 09/13/22 00:25 ED Decision to Admit Stat Ordered Studies Laboratory Results WBC 15.55 K/ul (4.8-10.8) H 09/13/22 03:34 RBC 3.80 M/uL (4.20-5.40) L 09/13/22 03:34 Hgb 12.3 g/dl (12.0-16.0) 09/13/22 03:34 Hct 35.2 % (37.0-47.0) L 09/13/22 03:34 MCV 92.6 fL (80.0-100.0) 09/13/22 03:34 MCH 32.4 pg (25.0-34.0) 09/13/22 03:34 MCHC 34.9 g/dL (32.0-36.0) 09/13/22 03:34 RDW Std Deviation 42.3 fL (36.4-46.3) 09/13/22 03:34 RDW Coeff of Gabriel 12.4 % (11.5-14.5) 09/13/22 03:34 Plt Count 163 K/uL (130-400) 09/13/22 03:34 MPV 9.9 fL (9.4-12.4) 09/13/22 03:34 Immature Gran % (Auto) 0.5 % 09/12/22 21:50 Neut % (Auto) 75.8 % 09/12/22 21:50 Lymph % (Auto) 14.7 % 09/12/22 21:50 Edwards % (Auto) 7.9 % 09/12/22 21:50 Eos % (Auto) 0.8 % 09/12/22 21:50 Baso % (Auto) 0.3 % 09/12/22 21:50 Neut # (Auto) 15.11 K/uL (1.40-6.50) H 09/12/22 21:50 Lymph # (Auto) 2.92 K/uL (1.2-3.4) 09/12/22 21:50 Edwards # (Auto) 1.58 K/uL (0.11-0.59) H 09/12/22 21:50 Eos # (Auto) 0.16 K/uL (0-0.50) 09/12/22 21:50 Baso # (Auto) 0.05 K/uL (0-0.2) 09/12/22 21:50 Immature Gran # (Auto) 0.10 K/uL (0.01-0.20) 09/12/22 21:50 PT 11.3 Seconds (9.0-12.0) 09/12/22 21:50 INR 1.0 (0.9-1.1) 09/12/22 21:50 APTT 27.1 Seconds (21.0-31.0) 09/12/22 21:50 PTT Ratio 1.0 09/12/22 21:50 Sodium 138 mmol/L (136-145) 09/13/22 03:34 Potassium 3.8 mmol/L (3.5-5.1) 09/13/22 03:34 Chloride 110 mmol/L (98-107) H 09/13/22 03:34 Carbon Dioxide 21 mmol/L (21-32) 09/13/22 03:34 Anion Gap 7 (3-11) 09/13/22 03:34 BUN 10 mg/dl (6-23) 09/13/22 03:34 Creatinine 0.79 mg/dl (0.6-1.2) 09/13/22 03:34 Est Cr Clr Drug Dosing 91.1 ml/min 09/13/22 03:34 Est GFR ( Amer) 105.5 ml/min 09/13/22 03:34 Est GFR (Non-Af Amer) 91.0 ml/min 09/13/22 03:34 BUN/Creatinine Ratio 12.7 (10-20) 09/13/22 03:34 Glucose 115 mg/dl (70-99(Fasting)) H 09/13/22 03:34 Lactate 1.0 mmol/L (0.4-2.0) 09/12/22 23:25 Calcium 7.9 mg/dl (8.6-10.3) L 09/13/22 03:34 Total Bilirubin 0.5 mg/dl (0.2-1.0) 09/12/22 21:50 AST 19 U/L (13-39) 09/12/22 21:50 ALT 23 U/L (7-52) 09/12/22 21:50 Alkaline Phosphatase 42 U/L (34-104) 09/12/22 21:50 Troponin I High Sens 5.1 pg/ml (0-14) 09/12/22 21:50 Total Protein 6.7 gm/dl (6.0-8.3) 09/12/22 21:50 Albumin 3.9 gm/dl (3.4-5.0) 09/12/22 21:50 Globulin 2.8 gm/dl (2.5-4.0) 09/12/22 21:50 Albumin/Globulin Ratio 1.4 (0.9-2) 09/12/22 21:50 Procalcitonin 0.05 ng/ml (0-0.5) 09/13/22 03:34 Nasal Screen MRSA (PCR) Positive (Negative) A 09/13/22 03:34 Adenovirus (PCR) Not Detected (NotDetected) 09/12/22 21:50 B. pertussis DNA (PCR) Not Detected (NotDetected) 09/12/22 21:50 B.parapertussis DNA PCR Not Detected (NotDetected) 09/12/22 21:50 C. pneumoniae DNA (PCR) Not Detected (NotDetected) 09/12/22 21:50 Coronavirus OC43 (PCR) Not Detected (NotDetected) 09/12/22 21:50 Coronavirus HKU1 (PCR) Not Detected (NotDetected) 09/12/22 21:50 Coronavirus 229E (PCR) Not Detected (NotDetected) 09/12/22 21:50 SARS-CoV-2 (PCR) Not Detected (NotDetected) 09/12/22 21:50 Coronavirus NL63 (PCR) Not Detected (NotDetected) 09/12/22 21:50 Human Metapneumovir PCR Not Detected (NotDetected) 09/12/22 21:50 Influenza Type A (PCR) Not Detected (NotDetected) 09/12/22 21:50 Influenza Type B (PCR) Not Detected (NotDetected) 09/12/22 21:50 M. pneumoniae (PCR) Not Detected (NotDetected) 09/12/22 21:50 Parainfluenza 1 (PCR) Not Detected (NotDetected) 09/12/22 21:50 Parainfluenza 2 (PCR) Not Detected (NotDetected) 09/12/22 21:50 Parainfluenza 3 (PCR) Not Detected (NotDetected) 09/12/22 21:50 Parainfluenza 4 (PCR) Not Detected (NotDetected) 09/12/22 21:50 RSV (PCR) Not Detected (NotDetected) 09/12/22 21:50 Entero/Rhino (PCR) DETECTED (NotDetected) A* 09/12/22 21:50 Impressions Chest X-Ray 09/12/22 21:44 XR chest 1V not portable HISTORY: Chest pain, nonspecific COMPARISON: Chest CT 09/12/2022. FINDINGS: No pneumothorax. No pleural effusions. The cardiac silhouette is normal in size. No evidence for pulmonary edema. Faint patchy density at the left lung base are better appreciated on the same day chest CT. No acute fractures. IMPRESSION: Faint patchy density at the left lung base are better appreciated on the same day chest CT. ACT 112: Negative or not required by law. Electronically signed by: Tomas Andrade M.D. 09/13/2022 6:57 AM Chest CTA 09/12/22 22:57 Exam(s): CTA CHEST IV Amt: 95 ML OPTIAY 320 EXAM: CT Angiography Chest With Intravenous Contrast CLINICAL HISTORY: Evaluate for pulmonary embolism. TECHNIQUE: Axial computed tomographic angiography images of the chest with intravenous contrast. Automated exposure control was utilized for the study. A dose lowering technique was utilized adhering to the principles of ALARA. MIP reconstructed images were created and reviewed. COMPARISON: No relevant prior studies available. FINDINGS: Limitations: There is respiratory artifact, which degrades image quality on multiple image slices. Pulmonary arteries: Accounting for limitations with respiratory artifact and suboptimal enhancement pattern of the pulmonary artery tree, there is no definite evidence for pulmonary embolism. Aorta: No acute findings. No thoracic aortic aneurysm. Lungs: Patchy opacities noted in the bilateral lower lobe centrally and questionably in the inferior right middle lobe. Pleural space: Unremarkable. No significant effusion. No pneumothorax. Heart: Unremarkable. No cardiomegaly. No significant pericardial effusion. Bones/joints: No acute fracture. No dislocation. Soft tissues: Unremarkable. Lymph nodes: Unremarkable. No enlarged lymph nodes. IMPRESSION: 1. Accounting for limitations with respiratory artifact and suboptimal enhancement pattern of the pulmonary artery tree, there is no definite evidence for pulmonary embolism. 2. Patchy opacities noted in the bilateral lower lobe centrally and questionably in the inferior right middle lobe. Findings are most consistent with multifocal pneumonia. Electronically signed by: Qasim Walsh MD 09/13/22 00:16 AM Hospital Course (1) Pneumonia: 42 yo F with PMH asthma, allergic rhinitis, chronic sinusitis, RA on Humira, hypereosinophilic syndrome on Nucala, hypothyroidism presenting with dyspnea. #Community acquired pneumonia #Rhino/enterovirus -Imaging findings consistent with multifocal pneumonia, +rhino/enterovirus pos itive on RVP, WBC 19 -Likely viral pneumonia with potential superimposed atypical bacterial pneumonia -Procal neg -BCx pending -Cefepime and azithromycin given in ER. Only cont. zithromax to cover for atypical pneumonia. Will treat for 5 days total. -Supportive care #Asthma, acute on chronic in exacerbation #Hypereosinophilic Syndrome -likely in exacerbation 2/2 infection and hypereosinophilic syndrome. Pt states since last month has been on two prednisone tapers while she waits for outpatient biologic therapy. Most recently was to complete a 10 day prednisone taper 09/13/22. Will extend prednisone taper 10mg daily x4 days. -cont home dulera and albuterol #Allergic rhinitis -cont. certirizine #Hypothyroidism -cont. levothyroxine #Rheumatoid arthritis, stable -currently not in acute flare -on Humira as outpatient (2) Enterovirus infection: (3) Asthma: (4) Allergic rhinitis: (5) Hypothyroidism: (6) Rheumatoid arthritis: (7) Hypereosinophilic syndrome: Total Time Total Time Spent Total Time Spent (In Minutes): 30 Discharge Plan Discharge Items Patient Disposition: Home - Self-Care Reason For Visit: PNEUMONIA Discharge Diagnosis: pneumonia, rhino/enterovirus, asthma exacerbation Activity: Per Instructions section Non-emergency contact: Primary Care Provider Call non-emergency contact if: you have any medication questions and your symptoms worsen Follow-up/Referrals: Yokasta Michaud CRNP [Primary Care Provider] - Diet: Regular Addtl Attending Provider Instructions: You were diagnosed with a common virus and a pneumonia which we will treat with antibiotics. You will need 4 more days on azithromycin 250mg daily starting 09/14/22. As for your asthma, it would be a good idea to continue steroids for 4 more days as well. You should take prednisone 10mg daily starting 09/14/22. You can continue your daily dulera inhaler. I would also recommend taking your albuterol inhaler about every 6 hours until you are recovered at which point you can revert back to taking it as needed. Pending Studies at Discharge: Yes (blood cultures) Stand-Alone Forms: My [facility], Smoking Cessation Medications and DC Order Prescriptions: New azithromycin 250 mg tablet 250 mg PO DAILY 4 Days Qty: 4 0RF Rx Instructions: start on 09/14/22 prednisone 10 mg tablet 10 mg PO DAILY 4 Days Qty: 4 0RF Rx Instructions: start 5/25/23 Continued desog-e.estradiol/e.estradiol 0.15-0.02 mgx21 /0.01 mg x 5 tablet 1 tab PO QPM Qty: 84 2RF Nucala 100 mg/mL syringe 300 mg subcut .COMPLEX Qty: 3 11RF Rx Instructions: INJECT 300 mg subcutaneously EVERY 4 WEEKS APPROVED thru pharmacy benefit GOOD 06/21/22-08/21/23 albuterol sulfate [ProAir HFA] 90 mcg/actuation HFA aerosol inhaler 2 puff INH Q4H PRN (Reason: shortness of breath or wheezing) Qty: 1 6RF prednisone 10 mg tablet See Rx Instructions PO DAILY Qty: 30 0RF Rx Instructions: TAKE 4 TABS DAILY X3 DAYS, 3 TABS DAILY X3 DAYS, 2 TABS DAILY X3 DAYS, AND 1 TAB DAILY X3 DAYS PO DAILY; WITH FOOD. methotrexate (PF) subcut prednisone PO Humira Pen 40 mg/0.8 mL pen injector kit 40 mg subcut Q14D Rx Instructions: start on day 29 of therapy Dulera 200-5 mcg/actuation HFA aerosol inhaler 2 puff inhalation BID Qty: 1 11RF cetirizine 10 mg tablet 10 mg PO HS ipratropium-albuterol 0.5 mg-3 mg(2.5 mg base)/3 mL solution for nebulization 3 ml inhalation Q6H PRN (Reason: sob) Qty: 2 Patient Comments: "its been over a year since i used it" levothyroxine 50 mcg tablet 50 mcg PO QAM aspirin 325 mg tablet,delayed release (DR/EC) 325 mg PO BID multivitamin Tablet 1 tab PO QPM Discharge Orders: Discharge Order (Routine); Ordered 09/13/22 Ordered By: Tejinder Juarez/Other Patient Handouts: Preventing Pneumonia Admission Data Admit Date/Time: 09/13/22 01:19 Attending Provider: Yony Torres Admit Provider: Jg Alvarado Primary Care Provider: Yokasta Michaud Other Providers: Marcelino Medley Other Interventions: Discharge Summary Assessment (RN) Last Done: 09/13/22 17:25 Supervising Physician Co-Signing Physician Notes I personally examined the patient and verified all garcia points of history and exam, discussed case, and agree with decision making with Dr Alfaro feeling better breathing better walked the halls without problems feels up to going home vitals noted nad heent nc at mmm L lower lung w faint squeak otherwise lungs cta b/l no rrw good effort skin no rashes no pallor or icterus atypical pneumonia, subsequent mild asthma flare, in context of hypereosinophilic syndrome - appearing safe for home, finish atypical coverage w azithromycin, short extension of steroids, outpt f/u Resident Activity Tracking Resident Involvement: Resident Care Provided Care Provided: Adult Hospital Medicine
--- NOTE | 2022-09-13 19:25 | Billing Data ---
Date of Service September 13, 2022 Coding Level of Care Code 43880 IN/OBS DISCH 30 MIN/LESS
[2022-09-13] MEDS ORDERED: CETIRIZINE HCL 10 MG TABLET PO SCH (21:00)
[2022-09-13] MEDS ORDERED: AZITHROMYCIN 250 MG TAB PO SCH (21:00)
--- NOTE | 2022-09-13 22:07 | Billing Data ---
Date of Service September 13, 2022 Coding Level of Care Code 14632 INT INP/OBS CARE
[2022-09-14] MEDS ORDERED: AZITHROMYCIN 250 MG in DEXTROSE 5% 250 ML IV SCH (01:15)
[2022-09-14] MEDS ORDERED: cefTRIAXone SODIUM 1,000 MG in DEXTROSE 5% AD-VAN 50 ML IV SCH (01:15)
== END 2022-09-13 18:18 | disposition home or self-care (01) | DRG 194 ==
LOC: ED 21:35 → INTOOBSV 09-13 01:19 → SUATTDRO 09-13 01:19 → EDINP 09-13 01:19 → 3N 09-13 04:59